=== PATIENT | male | born 1995 | race Hispanic/Latino ===

== ENCOUNTER 2020-01-23 17:15 | Emergency (ER) | payer BC, OTHER ==
[2020-01-23] MEDS ORDERED: ZIPRASIDONE MESYLATE 20 MG/VIAL IM ONE (18:39)
[2020-01-23] MEDS ORDERED: LORAZEPAM 2 MG/ML 1 ML VIAL ONE (18:40)
== END 2020-01-23 19:40 | disposition home or self-care (01) ==
LOC: EDH 17:15
DX: F31.9 Bipolar disorder, unspecified (principal)
CPT/HCPCS: 96372 ×2; 99284; J2060; J3486